=== PATIENT | male | born 1970 | race Caucasian/White ===

== ENCOUNTER → 2023-09-29 | Outpatient (CLI) | payer OTHER, SELFPAY ==
--- NOTE | 2023-09-29 | LES_PTH ---
PATHOLOGY RESULTS PATIENT: BECCA CASTELLANO LOC: [facility] U#:[id number] AGE/SX: 53/M ROOM: RE09/29/[address]: Dr. 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 AM:luciano 10/01/2023 MICROSCOPIC DESCRIPTION Slides are reviewed. GROSS DESCRIPTION Received in fixative is one container labeled with the patient's name and designated left lower lid. The specimen consists of an elongated fragment of light benoit soft tissue measuring 1.1 x 0.6 x 0.3 cm. The specimen is totally submitted in one cassette. / AM:luciano 09/30/2023 TC:1 CPT: 54794
== END | disposition home or self-care (01) ==
PROVIDERS: Visit Provider Ophthalmology
DX: L98.0 Pyogenic granuloma (principal)
CPT/HCPCS: 88305